=== PATIENT | male | born 1950 | race Caucasian/White ===

== ENCOUNTER 2021-01-27 15:53 | Emergency (ER) | payer OTHER ==
[2021-01-27 16:58] LABS: BASOPHIL 0.5 % (0-2); EOSINOPHIL 2.4 % (0-7); HGB 12.8 g/dl (13.2-18.0); LYMPHOCYTE 16.2 % (15-48); MCHC 33.7 g/dL (32.0-36.0); MCV 89.2 fL (78.0-100.0); MONOCYTE 10.2 % (0-12); MPV 9.9 fL (6.0-9.5); NEUTROPHIL 70.2 % (41-80); NRBC 0; PLT 236 K/uL (150-400); RBC 4.26 M/uL (4.70-6.00); RDW 13.4 % (11.5-14.0); WBC 6.2 K/uL (4.0-10.5)
[2021-01-27 17:22] LABS: LACTIC ACID 1.4 mmol/L (0.4-1.9)
[2021-01-27 17:25] LABS: ALBUMIN 3.5 g/dL (3.4-5.0); BILIRUBIN - TOTAL 0.6 mg/dL (0.2-1.0); BUN/CREAT RATIO (CALC) 11.4 RATIO; CREATININE 2.46 mg/dL (0.67-1.17); POTASSIUM 4.3 mmol/L (3.5-5.1); TOTAL PROTEIN 7.5 g/dL (6.4-8.2)
== END 2021-01-27 20:20 | disposition other institution (70) ==
LOC: FER 15:53
PROVIDERS: Emergency Medicine
DX: N17.9 Acute kidney failure, unspecified (principal); I95.9 Hypotension, unspecified; I10 Essential (primary) hypertension; R05 Cough; R55 Syncope and collapse; Z20.822 Contact with and (suspected) exposure to COVID-19
CPT/HCPCS: 36415; 36600; 71045; 80053; 82803; 83605; 85025; 87040; J7030; U0002